=== PATIENT | female | born 1990 | race Caucasian/White ===

== ENCOUNTER 2016-06-22 12:26 | Emergency (ER) | payer SELFPAY ==
[~2016-06-22] VITALS: Ht 170.2 cm; Wt 104.3 kg
[~2016-06-22 12:26] MED LIST: SULF1TAB24 PO; TRAM-29 PO
[2016-06-22] MEDS ORDERED: ONDANSETRON PF 4 MG/2 ML VIAL. IV ONE ×2 (13:30)
[2016-06-22] MEDS ORDERED: LIDO:MAALOX:DONNATAL 1:1:1 15 ML SINGLE DOSE SWSW PRN ×2 (13:30)
[2016-06-22 13:32] LABS: BILIRUBIN,URINE NEGATIVE (NEG); GLUCOSE,URINE NEGATIVE (NEG); NITRITE,URINE NEGATIVE (NEG); PH,URINE 7.5; PROTEIN,URINE NEGATIVE (NEG-TRACE); UROBILINOGEN,URINE 0.2 mg/dL (0.2 mg/dL)
[2016-06-22 13:33] LABS: BASO % 0 % (0-3); EOS % 2 % (0-3); HEMATOCRIT 36.9 % (36.0-47.0); HEMOGLOBIN 12.6 g/dL (12.0-15.5); LYMPH # 1.6 x10^3/uL (1.0-4.8); LYMPH % 14 % (24-48); MEAN CORPUSCULAR HEMOGLOBIN 30 pg (25-35); MEAN CORPUSCULAR HGB CONC 34 g/dL (31-37); MEAN CORPUSCULAR VOLUME 86 fL (79-100); MONO % 7 % (0-9); NEUT % 77 % (31-73); PLATELET COUNT 309 x10^3/uL (140-400); RED BLOOD COUNT 4.28 x10^6/uL (3.50-5.40); RED CELL DISTRIBUTION WIDTH 14.8 % (11.5-14.5); WHITE BLOOD COUNT 11.5 x10^3/uL (4.0-11.0)
[2016-06-22 13:38] LABS: BACTERIA,URINE MODERATE /HPF (0-FEW); RBC,URINE 0 /HPF (0-2); SQUAMOUS EPITHELIAL CELL,UR MOD /LPF
[2016-06-22 13:42] LABS: CALCIUM 8.8 mg/dL (8.5-10.1); CREATININE 0.6 mg/dL (0.6-1.0); GFR 122.8; POTASSIUM 4.3 mmol/L (3.5-5.1)
[2016-06-22 13:47] LABS: ALBUMIN 3.2 g/dL (3.4-5.0); ALBUMIN/GLOBULIN RATIO 0.7 (1.0-1.7); TOTAL BILIRUBIN 0.4 mg/dL (0.2-1.0); TOTAL PROTEIN 7.5 g/dL (6.4-8.2)
--- NOTE | 2016-06-22 14:56 | RAD ---
Indication abdominal and pelvic pain. Early obstetrical ultrasound examination was performed. No prior imaging is available associated with this . The uterus measures approximately 15.4 x 10 x 8 cm. There is a single, viable, IUP. heart rate of 169 was documented. The crown-rump length of 4.8 cm is compatible with a gestational age of approximately 11 weeks 4 days. By sonographic analysis the expected date of confinement is 01/07/2017. The left ovary appeared unremarkable. The right ovary was not seen. Adnexal mass or significant free fluid in the pelvis was not seen. IMPRESSION: Single, viable, IUP of approximately 11 weeks 4 days gestation
--- NOTE | 2016-06-22 14:58 | RAD ---
Indication right upper quadrant abdominal pain. Grayscale imaging was performed. Examination was targeted to the right upper quadrant. No similar imaging is available. A focal mass lesion is not seen in the visualized liver. The gallbladder appeared unremarkable. No cholelithiasis was seen. The visualized pancreas appeared unremarkable. The common bile duct diameter of approximately 2 mm was normal. The right kidney appeared unremarkable. IMPRESSION: No acute or significant finding seen in the right upper quadrant
[2016-06-22 15:00] VITALS: BP 126/58
[2016-06-22] MEDS ORDERED: FENTANYL PF 100 MCG/2 ML VIAL. IV PRN (15:00)
[2016-06-22] MEDS ORDERED: METO10TA81 PO (15:06)
[2016-06-22] MEDS ORDERED: RANI150T6 PO (15:06)
--- NOTE | 2016-06-22 15:06 | PHYS DOC ---
Past Medical History Past Medical History: No Pertinent History Additional Past Medical Histor: HTN w/ Past Surgical History: Alcohol Use: None Drug Use: None Adult General Chief Complaint Chief Complaint: ABDOMINAL PAIN IN HPI HPI Patient is a 26 year old female who presents with abdominal pain and . Patient states this morning she was taking azithromycin pills which were prescribed recently for Chlamydia infection. She states after she took the pills she started having epigastric and right upper quadrant abdominal pain associated with nausea & vomiting x 1. Denies fevers or chills, hematemesis, diarrhea or constipation, dysuria or hematuria, vaginal bleeding or discharge. She has been seen for by Dr. Panchal in the OB clinic, reports she is 11 weeks . History of hypertension complicating her pregnancies in the past , taking unknown blood pressure medication at this time. Review of Systems Review of Systems Constitutional: Denies fever or chills Eyes: Denies change in visual acuity HENT: Denies nasal congestion or sore throat Respiratory: Denies cough or shortness of breath Cardiovascular: Denies chest pain or edema GI: Reports abdominal pain, nausea, vomiting, denies bloody stools or diarrhea : Denies dysuria or hematuria Musculoskeletal: Denies back pain or joint pain Integument: Denies rash or skin lesions Neurologic: Denies headache, focal weakness or sensory changes Current Medications Current Medications Current Medications Medications (Trade) Dose Ordered Sig/Alise Start Time Stop Time Status Last Admin Dose Admin Fentanyl Citrate (Fentanyl 2ml Vial) 50 mcg PRN Q15MIN PRN 06/22/16 15:00 06/22/16 16:06 DC 06/22/16 15:09 50 MCG Multi-Ingredient Mouthwash/Gargle (Gi Cocktail Single Dose) 10 ml PRN 1X PRN 06/22/16 13:30 06/22/16 16:06 DC 06/22/16 13:38 10 ML Ondansetron HCl (Zofran) 4 mg 1X ONCE 06/22/16 13:30 06/22/16 13:31 DC 06/22/16 13:38 4 MG Allergies Allergies Allergies Coded Allergies Type Severity Reaction Last Updated Verified No Known Drug Allergies 06/22/16 No Physical Exam Physical Exam Constitutional: Obese, no acute distress, non-toxic appearance. HENT: Normocephalic, atraumatic, bilateral external ears normal, oropharynx moist, nose normal. Eyes: conjunctiva normal, no discharge. Neck: supple, no stridor. Cardiovascular: RRR, no murmurs, no edema. Lungs & Thorax: LCTAB, no wheezing, no respiratory distress. Abdomen: Normal bowel sounds, soft, right upper quadrant and epigastric tenderness without rebound or guarding, no masses, no lower abdominal tenderness , nondistended. Skin: Warm, dry, no erythema, no rash. Back: No tenderness, no CVA tenderness. Extremities: No tenderness, no edema. Neurologic: Alert and oriented X 3, no focal deficits noted. Psychologic: Affect normal, judgement normal, mood normal. Current Patient Data Vital Signs Vital Signs Date Time Temp Pulse Resp B/P Pulse Ox O2 Delivery O2 Flow Rate FiO2 06/22/16 15:30 Room Air 06/22/16 15:00 82 29 126/58 98 06/22/16 13:28 97.9 97.9 Lab Values Laboratory Tests Test 06/22/16 12:19 06/22/16 13:04 06/22/16 13:30 POC Urine HCG, Qualitative Hcg positive (Negative) Urine Collection Type Unknown Urine Color Yellow Urine Clarity Clear Urine pH 7.5 Urine Specific [place] 1.010 Urine Protein Negativemg/dL (NEG-TRACE) Urine Glucose (UA) Negativemg/dL (NEG) Urine Ketones (Stick) Negativemg/dL (NEG) Urine Blood Negative (NEG) Urine Nitrite Negative (NEG) Urine Bilirubin Negative (NEG) Urine Urobilinogen Dipstick 0.2mg/dL (0.2 mg/dL) Urine Leukocyte Esterase Trace (NEG) Urine RBC 0/HPF (0-2) Urine WBC 1-4/HPF (0-4) Urine Squamous Epithelial Cells Mod/LPF Urine Bacteria Moderate/HPF (0-FEW) White Blood Count 11.5x10^3/uL (4.0-11.0) H Red Blood Count 4.28x10^6/uL (3.50-5.40) Hemoglobin 12.6g/dL (12.0-15.5) Hematocrit 36.9% (36.0-47.0) Mean Corpuscular Volume 86fL (79-100) Mean Corpuscular Hemoglobin 30pg (25-35) Mean Corpuscular Hemoglobin Concent 34g/dL (31-37) Red Cell Distribution Width 14.8% (11.5-14.5) H Platelet Count 309x10^3/uL (140-400) Neutrophils (%) (Auto) 77% (31-73) H Lymphocytes (%) (Auto) 14% (24-48) L Monocytes (%) (Auto) 7% (0-9) Eosinophils (%) (Auto) 2% (0-3) Basophils (%) (Auto) 0% (0-3) Neutrophils # (Auto) 8.9x10^3uL (1.8-7.7) H Lymphocytes # (Auto) 1.6x10^3/uL (1.0-4.8) Monocytes # (Auto) 0.8x10^3/uL (0.0-1.1) Eosinophils # (Auto) 0.2x10^3/uL (0.0-0.7) Basophils # (Auto) 0.0x10^3/uL (0.0-0.2) Sodium Level 137mmol/L (136-145) Potassium Level 4.3mmol/L (3.5-5.1) Chloride Level 101mmol/L (98-107) Carbon Dioxide Level 27mmol/L (21-32) Anion Gap 9 (6-14) Blood Urea Nitrogen 8mg/dL (7-20) Creatinine 0.6mg/dL (0.6-1.0) Estimated GFR (Cockcroft-Gault) 122.8 BUN/Creatinine Ratio 13 (6-20) Glucose Level 96mg/dL (70-99) Calcium Level 8.8mg/dL (8.5-10.1) Total Bilirubin 0.4mg/dL (0.2-1.0) Aspartate Amino Transferase (AST) 14U/L (15-37) L Alanine Aminotransferase (ALT) 19U/L (14-59) Alkaline Phosphatase 65U/L (46-116) Total Protein 7.5g/dL (6.4-8.2) Albumin 3.2g/dL (3.4-5.0) L Albumin/Globulin Ratio 0.7 (1.0-1.7) L Lipase 150U/L (73-393) Laboratory Tests 06/22/16 13:30 Laboratory Tests 06/22/16 13:30 EKG EKG [] Radiology/Procedures Radiology/Procedures PROCEDURE: OB < 14 WKS Indication abdominal and pelvic pain. Early obstetrical ultrasound examination was performed. No prior imaging is available associated with this . The uterus measures approximately 15.4 x 10 x 8 cm. There is a single, viable, IUP. heart rate of 169 was documented. The crown-rump length of 4.8 cm is compatible with a gestational age of approximately 11 weeks 4 days. By sonographic analysis the expected date of confinement is 01/07/2017. The left ovary appeared unremarkable. The right ovary was not seen. Adnexal mass or significant free fluid in the pelvis was not seen. IMPRESSION: Single, viable, IUP of approximately 11 weeks 4 days gestation DICTATED and SIGNED BY: SHANNON MILLER MD DATE: 06/22/16 1450 PROCEDURE: ABDOMEN LTD Indication right upper quadrant abdominal pain. Grayscale imaging was performed. Examination was targeted to the right upper quadrant. No similar imaging is available. A focal mass lesion is not seen in the visualized liver. The gallbladder appeared unremarkable. No cholelithiasis was seen. The visualized pancreas appeared unremarkable. The common bile duct diameter of approximately 2 mm was normal. The right kidney appeared unremarkable. IMPRESSION: No acute or significant finding seen in the right upper quadrant DICTATED and SIGNED BY: SHANNON MILLER MD DATE: 06/22/16 4542[] Course & Med Decision Making Course & Med Decision Making Pertinent Labs and Imaging studies reviewed. (See chart for details) Patient presents with abdominal pain in . No lower abdominal pain, discharge, bleeding. Gave GI cocktail, pain medication, antiemetics, IV fluids. She felt better after treatment here. Labs unremarkable for acute process. Ultrasound of right upper quadrant unremarkable as is obstetric ultrasound which shows live IUP. Suspect symptoms related to gastritis or GERD, complicated by pill ingestion. Recommend eating with antibiotics, gave perceptions for Reglan and Zantac. Try to avoid eating fatty foods and be diligent with hydration. Follow up with Dr. Panchal in the OB clinic in 2-3 days. Return to the emergency department for high fever, severe pain, uncontrolled vomiting, heavy vaginal bleeding requiring use of greater than 1 pad per hour, any otherwise worsening condition. Discharged home in stable and improved condition. [] Dragon Disclaimer Dragon Disclaimer This electronic medical record was generated, in whole or in part, using a voice recognition dictation system. Departure Departure Impression: Primary Impression: Abdominal pain affecting Additional Impression: Nausea & vomiting Disposition: 01 HOME, SELF-CARE Condition: STABLE Referrals: ANDREWS PANCHAL MD (PCP) Patient Instructions: Abdominal Pain During , [id number] Additional Instructions: You worsen in the emergency department today for abdominal pain during . Tests here did not show a serious cause of symptoms. This may be heartburn or stomach irritation from taking pills. Please rest, drink fluids, take Reglan for nausea, use Zantac as needed for burning stomach pain. Try to avoid spicy foods, coffee. Follow-up with Dr. Panchal on Saturday if symptoms continue. Return to the emergency department for high fever, severe pain, uncontrolled vomiting, vaginal bleeding requiring use of more than 1 pad per hour, any otherwise worsening condition. Scripts Ranitidine Hcl (Zantac)150 Mg [id number] Mg PO DAILY #20 TAB Prov:MINNIE VIDAL MD 06/22/16 Metoclopramide Hcl (Reglan)10 Mg Tablet1 Tab PO TID PRN NAUSEA #20 TAB Prov:MINNIE VIDAL MD 06/22/16 Problem Qualifiers MINNIE VIDAL MD Jun 22, 2016 15:06
== END 2016-06-22 15:30 | disposition home or self-care (01) ==
LOC: ER 12:26
DX: O26.891 Other specified pregnancy related conditions, first trimester (principal); R10.13 Epigastric pain; R10.11 Right upper quadrant pain; O21.0 Mild hyperemesis gravidarum; O16.1 Unspecified maternal hypertension, first trimester; Z3A.11 11 weeks gestation of pregnancy
CPT/HCPCS: 36415; 76705; 76801; 80053; 81001; 81025; 83690; 85027; 87086; 96374; 96375; 99285; J2405; J3010

== ENCOUNTER 2016-09-06 18:15 | Observation (INO) | payer SELFPAY ==
[~2016-09-06 18:15] MED LIST changes: +METO10TA81 PO; +RANI150T6 PO; -TRAM-29 PO; +TRAM-48 PO
[2016-09-06] MEDS ORDERED: hydrOXYzine PAMOATE 25 MG CAPSULE PO PRN (19:50)
[2016-09-06 20:28] LABS: BASO # 0.1 x10^3/uL (0.0-0.2); BASO % 0 % (0-3); EOS % 1 % (0-3); LYMPH # 2.3 x10^3/uL (1.0-4.8); LYMPH % 17 % (24-48); MEAN CORPUSCULAR HEMOGLOBIN 31 pg (25-35); MEAN CORPUSCULAR HGB CONC 34 g/dL (31-37); MEAN CORPUSCULAR VOLUME 90 fL (79-100); MONO % 7 % (0-9); NEUT % 75 % (31-73); PLATELET COUNT 276 x10^3/uL (140-400); RED BLOOD COUNT 3.54 x10^6/uL (3.50-5.40); RED CELL DISTRIBUTION WIDTH 14.1 % (11.5-14.5); WHITE BLOOD COUNT 13.8 x10^3/uL (4.0-11.0)
[2016-09-06] MEDS: IV DEXTROSE 5%-LACT RINGERS 1,000 ML IV SCH ×2 (20:32→21:15)
[2016-09-06 20:43] LABS: ALBUMIN 2.9 g/dL (3.4-5.0); ALBUMIN/GLOBULIN RATIO 0.8 (1.0-1.7); CALCIUM 8.6 mg/dL (8.5-10.1); CREATININE 0.6 mg/dL (0.6-1.0); GFR 122.8; TOTAL BILIRUBIN 0.2 mg/dL (0.2-1.0); TOTAL PROTEIN 6.7 g/dL (6.4-8.2)
== END 2016-09-06 22:26 | disposition home or self-care (01) ==
LOC: 3 SO LND 18:15
PROVIDERS: ADMIT Specialist; ATTEND Specialist
DX: O26.892 Other specified pregnancy related conditions, second trimester (principal); R10.9 Unspecified abdominal pain; R42 Dizziness and giddiness; R21 Rash and other nonspecific skin eruption; Z3A.22 22 weeks gestation of pregnancy
CPT/HCPCS: 36415; 80053; 85027; 96360; 96361; G0378; G0379; Q0177

== ENCOUNTER 2016-10-28 15:49 | Observation (INO) | payer OTHER ==
[~2016-10-28] VITALS: Ht 170.2 cm; Wt 113.4 kg
[2016-10-28] MEDS ORDERED: CYCLOBENZAPRINE 10 MG TABLET. PO ONE (17:30)
== END 2016-10-28 18:45 | disposition home or self-care (01) ==
LOC: 3 SO LND 15:49
PROVIDERS: ADMIT Specialist; ATTEND Specialist
DX: O26.893 Other specified pregnancy related conditions, third trimester (principal); M54.9 Dorsalgia, unspecified; M25.552 Pain in left hip; Z3A.29 29 weeks gestation of pregnancy
CPT/HCPCS: 82962; G0378; G0379

== ENCOUNTER 2021-04-25 17:24 | Emergency (ER) | payer OTHER ==
[~2021-04-25] VITALS: Ht 167.6 cm; Wt 118.2 kg
[~2021-04-25 17:24] MED LIST changes: +RANI-376 PO; -RANI150T6 PO
[2021-04-25 18:18] LABS: BILIRUBIN,URINE NEGATIVE (NEG); CLARITY,URINE CLEAR; COLOR,URINE YELLOW; NITRITE,URINE NEGATIVE (NEG); PROTEIN,URINE NEGATIVE (NEG-TRACE)
[2021-04-25 18:26] LABS: BACTERIA,URINE 0 /HPF (0-FEW); RBC,URINE 0 /HPF (0-2); WBC,URINE OCC /HPF (0-4)
[2021-04-25 18:42] LABS: INFLUENZA A PATIENT NEGATIVE (NEGATIVE); INFLUENZA B PATIENT NEGATIVE (NEGATIVE)
[2021-04-25] MEDS ORDERED: DEXAMETHASONE SOD PHOS 20 MG/5 ML VIAL. IV ONE (18:45)
[2021-04-25] MEDS ORDERED: cefTRIAXone IV Push 1 GM VIAL. IVP ONE (18:45)
[2021-04-25] MEDS ORDERED: ACETAMINOPHEN 500 MG TABLET PO ONE (18:45)
--- NOTE | 2021-04-25 18:49 | PHYS DOC ---
Past Medical History Past Medical History: No Pertinent History Additional Past Medical Histor: HTN w/ Past Surgical History: Smoking Status: Current Every Day Smoker Alcohol Use: Occasionally Drug Use: None Social History Narrative: "I DON'T DO METH. BUT I'VE BEEN AROUND IT A LOT, I COULD TEST + General Adult EDM: Chief Complaint: HEADACHE HPI: HPI: Patient is a 31 year old female who presents the ED today complaining of a sore throat, headache, fever, symptoms began yesterday. Patient denies any chest pain or shortness of breath. She states she is not vaccinated tetanus COVID19. Review of Systems: Review of Systems: Constitutional: Reports fever Eyes: Denies change in visual acuity. [] HENT: Reports sore throat. Denies nasal congestion Respiratory: Denies cough or shortness of breath. [] Cardiovascular: Denies chest pain or edema. [] GI: Denies abdominal pain, nausea, vomiting, bloody stools or diarrhea. [] : Denies dysuria. [] Musculoskeletal: Denies back pain or joint pain. [] Integument: Denies rash. [] Neurologic: Reports headache, denies focal weakness or sensory changes. [] Psychiatric: Denies depression or anxiety. [] Heart Score: C/O Chest Pain: N/A Risk Factors: Risk Factors: DM, Current or recent (<one month) smoker, HTN, HLP, family history of CAD, obesity. Risk Scores: Score 0 - 3: 2.5% MACE over next 6 weeks - Discharge Home Score 4 - 6: 20.3% MACE over next 6 weeks - Admit for Clinical Observation Score 7 - 10: 72.7% MACE over next 6 weeks - Early Invasive Strategies Current Medications: Current Medications Medications (Trade) Dose Ordered Sig/Alise Start Time Stop Time Status Last Admin Dose Admin Acetaminophen (Tylenol) 1,000 mg 1X ONCE 04/25/21 18:45 04/25/21 18:46 DC Ceftriaxone Sodium (Rocephin) 1 gm 1X ONCE 04/25/21 18:45 04/25/21 18:46 DC Dexamethasone Sodium Phosphate (Decadron) 10 mg 1X ONCE 04/25/21 18:45 04/25/21 18:46 DC Sodium Chloride 1,000 ml @ 1,770 mls/hr Q34M 04/25/21 18:45 04/25/21 19:45 Allergies: Allergies: Allergies Coded Allergies Type Severity Reaction Last Updated Verified No Known Drug Allergies 06/22/16 No Physical Exam: PE: Constitutional: Well developed, well nourished, no acute distress, non-toxic appearance. [] HENT: Normocephalic, atraumatic, bilateral external ears normal, oropharynx moist, no oral exudates, nose normal. [] Midline uvula, +3 tonsils with mild erythema and trace exudate +2 anterior cervical adenopathy Eyes: PERRLA, EOMI, conjunctiva normal, no discharge. [] Neck: Normal range of motion, no tenderness, supple, no stridor. [] Cardiovascular:Heart rate regular rhythm, no murmur [] Lungs & Thorax: Bilateral breath sounds clear to auscultation [] Abdomen: Bowel sounds normal, soft, no tenderness, no masses, no pulsatile mass es. [] Skin: Warm, dry, no erythema, no rash. [] Back: No tenderness, no CVA tenderness. [] Extremities: No tenderness, no cyanosis, no clubbing, ROM intact, no edema. [] Neurologic: Alert and oriented X 3, normal motor function, normal sensory function, no focal deficits noted. [] Psychologic: Affect normal, judgement normal, mood normal. [] Current Patient Data: Labs: Laboratory Tests Test 04/25/21 17:52 04/25/21 17:53 04/25/21 18:05 Urine Collection Type Unknown Urine Color Yellow Urine Clarity Clear Urine pH 7.0 (<5.0-8.0) Urine Specific [place] 1.015 (1.000-1.030) Urine Protein Negative mg/dL (NEG-TRACE) Urine Glucose (UA) Negative mg/dL (NEG) Urine Ketones (Stick) Negative mg/dL (NEG) Urine Blood Negative (NEG) Urine Nitrite Negative (NEG) Urine Bilirubin Negative (NEG) Urine Urobilinogen Dipstick 1.0 mg/dL (0.2 mg/dL) Urine Leukocyte Esterase Negative (NEG) Urine RBC 0 /HPF (0-2) Urine WBC Occ /HPF (0-4) Urine Squamous Epithelial Cells Few /LPF Urine Bacteria 0 /HPF (0-FEW) Influenza Type A Antigen Negative (NEGATIVE) Influenza Type B Antigen Negative (NEGATIVE) SARS-CoV-2 Antigen (Rapid) Negative (NEGATIVE) POC Urine HCG, Qualitative Hcg negative (Negative) Vital Signs: Vital Signs Date Time Temp Pulse Resp B/P (MAP) Pulse Ox O2 Delivery O2 Flow Rate FiO2 04/25/21 17:48 101.1 127 28 126/58 (80) 98 Room Air 101.1 EKG: EKG: [] Radiology/Procedures: Radiology/Procedures: []PROCEDURE: CT SOFT TISSUE NECK W/CONTRAST Exam: CT Neck with contrast INDICATION: Sore throat TECHNIQUE: Sequential axial images through the neck obtained following the administration of 70 mL of Omni 300 IV contrast. Sagittal and coronal reformatted images were reconstructed from the axial data and reviewed. Exposure: One or more of the following in the visualized dose reduction techniques were utilized for this examination: 1. Automated exposure control 2. Adjustment of the MA and/or KV according to patient size 3. Use of iterative of reconstructive technique Comparisons: None FINDINGS: Visualized intracranial structures are unremarkable. Globes intradural contents are normal. Mucosal retention cyst noted within the right maxillary sinus. There is near complete opacification of the right frontal sinus. There is circumferential parapharyngeal edema and mucosal thickening at the level of the nasopharynx and oropharynx. There is enlargement of the palatine tonsils and adenoids bilaterally. Thyroid and salivary glands are within normal limits. There are numerous prominent and mildly enlarged bilateral cervical lymph nodes. Visualized lung apices are clear. No suspicious osseous lesions or acute fractures. IMPRESSION: 1. Enlargement of the palatine and adenoid tonsils with mild parapharyngeal edema. Findings likely related to pharyngitis. No focal fluid collection to suggest abscess. 2. Extensive enlarged upper cervical lymphadenopathy bilaterally. This is likely reactive to the above process. Electronically signed by: Camilo Yang MD (04/25/2021 8:14 PM) [facility] DICTATED and SIGNED BY: CAMILO YANG MD DATE: 04/25/[id number] 0 Course & Med Decision Making: Course & Med Decision Making Pertinent Labs and Imaging studies reviewed. (See chart for details) This is a 31-year-old female patient presented to the ED today with headache sore throat and a fever that began yesterday. Vitals on arrival to the ED temperature 1-0.1, heart rate 127 UDS positive for methamphetamine, respiration 28, blood pressure 126/58, O2 sats 98% on room air. Positive rapid strep, CBC with a WBC of 17.9 and a left shift, CMP with no acute findings. Lactic is normal, negative rapid Covid test, negative influenza a and B CT of neck soft tissues noted for acute pharyngitis with no abscess Patient was given Rocephin, Decadron, 2 L of IV fluids, Tylenol, Toradol, feeling better. Patient and mother are requesting she gets discharged to home before the weather gets bad. Patient's mother also requested patient to be discharged before the weather gets bad. Patient willing to follow up with ENT as outpatient. Contact provided. Given prescription for amoxicillin and prednisone. Discussed fever management. Discharge to home. ticketstreet Disclaimer: ticketstreet Disclaimer: This electronic medical record was generated, in whole or in part, using a voice recognition dictation system. Departure Departure Impression: Primary Impression: Acute pharyngitis Qualified Codes: J02.9 - Acute pharyngitis, unspecified Additional Impressions: Fever Qualified Codes: R50.9 - Fever, unspecified Tachycardia Disposition: 01 HOME / SELF CARE / HOMELESS Condition: STABLE Referrals: NO PCP (PCP) QUINTON BURGOS MD follow up in the next seven days Patient Instructions: Fever, Viral and Bacterial Pharyngitis Additional Instructions: You have acute pharyngitis, take the prescribed antibiotics and prednisone as ordered. Take the pain medicine as needed for pain. Please follow-up with the provided ENT and the primary care doctor in the next 7 days, come back to the ED at any point symptoms worsen Scripts Hydrocodone Bit/Acetaminophen (HYDROCODONE-APAP 5-325 ) 1 Tab Tablet 1 TAB PO PRN Q6HRS PRN for PAIN, #[address] Zuñiga Prov: NEYMAR GUAMAN WET WHEELER 04/25/21 Prednisone (PREDNISONE) 50 Mg Tablet 1 TAB PO DAILY, #5 TAB Prov: NEYMAR GUAMAN WET WHEELER 04/25/21 Amoxicillin (AMOXICILLIN) 875 Mg Tablet 1 TAB PO BID, #20 TAB Prov: NEYMAR GUAMAN WET WHEELER 04/25/21 NEYMAR GUAMAN APRN Apr 25, 2021 18:49
[2021-04-25 19:00] VITALS: BP 147/91
[2021-04-25] MEDS: IV NORMAL SALINE 1000ML BAG 1,000 ML IV SCH ×2 (19:06→19:32)
[2021-04-25 19:08] LABS: BASO # 0.1 x10^3/uL (0.0-0.2); BASO % 0 % (0-3); EOS % 0 % (0-3); HEMATOCRIT 34.5 % (36.0-47.0); HEMOGLOBIN 11.6 g/dL (12.0-15.5); LYMPH # 1.7 x10^3/uL (1.0-4.8); LYMPH % 10 % (24-48); MEAN CORPUSCULAR HEMOGLOBIN 28 pg (25-35); MEAN CORPUSCULAR HGB CONC 34 g/dL (31-37); MEAN CORPUSCULAR VOLUME 83 fL (79-100); MONO # 1.2 x10^3/uL (0.0-1.1); MONO % 7 % (0-9); NEUT # 14.8 x10^3/uL (1.8-7.7); NEUT % 83 % (31-73); PLATELET COUNT 312 x10^3/uL (140-400); RED BLOOD COUNT 4.15 x10^6/uL (3.50-5.40); RED CELL DISTRIBUTION WIDTH 13.8 % (11.5-14.5); WHITE BLOOD COUNT 17.9 x10^3/uL (4.0-11.0)
[2021-04-25 19:24] LABS: CALCIUM 8.2 mg/dL (8.5-10.1); CREATININE 0.7 mg/dL (0.6-1.0); GFR 98.9; POTASSIUM 3.9 mmol/L (3.5-5.1)
[2021-04-25 19:30] LABS: ALBUMIN 3.2 g/dL (3.4-5.0); ALBUMIN/GLOBULIN RATIO 0.7 (1.0-1.7); TOTAL BILIRUBIN 0.4 mg/dL (0.2-1.0); TOTAL PROTEIN 7.5 g/dL (6.4-8.2)
[2021-04-25 19:31] LABS: % ATYL 1 % (0-0); % BANDS 11 % (0-9); % LYMPHS 6 % (24-48); % MONOS 5 % (0-10); % SEGS 77 % (35-66); PLT ESTIMATE ADEQUATE (ADEQUATE); TOXIC GRANULATION SLIGHT
[2021-04-25] MEDS ORDERED: IOHEXOL 300 MG/ML 100ML VIAL. IV ONE (19:45)
[2021-04-25] MEDS ORDERED: CONTRAST GIVEN. MC PRN (19:45)
[2021-04-25 20:12] LABS: BARBITURATES NEG (NEG); BENZODIAZEPINES NEG (NEG); CANNABINOIDS NEG (NEG); COCAINE NEG (NEG); METHADONE NEG (NEG); OPIATES NEG (NEG); PHENCYCLIDINE NEG (NEG)
[2021-04-25 20:13] LABS: AMPHETAMINE/METHAMPHETAMINE POS (NEG)
--- NOTE | 2021-04-25 20:16 | RAD ---
Exam: CT Neck with contrast INDICATION: Sore throat TECHNIQUE: Sequential axial images through the neck obtained following the administration of 70 mL of Omni 300 IV contrast. Sagittal and coronal reformatted images were reconstructed from the axial data and reviewed. Exposure: One or more of the following in the visualized dose reduction techniques were utilized for this examination: 1. Automated exposure control 2. Adjustment of the MA and/or KV according to patient size 3. Use of iterative of reconstructive technique Comparisons: None FINDINGS: Visualized intracranial structures are unremarkable. Globes intradural contents are normal. Mucosal retention cyst noted within the right maxillary sinus. There is near complete opacification o f the right frontal sinus. There is circumferential parapharyngeal edema and mucosal thickening at the level of the nasopharynx and oropharynx. There is enlargement of the palatine tonsils and adenoids bilaterally. Thyroid and salivary glands are within normal limits. There are numerous prominent and mildly enlarged bilateral cervical lymph nodes. Visualized lung apices are clear. No suspicious osseous lesions or acute fractures. IMPRESSION: 1. Enlargement of the palatine and adenoid tonsils with mild parapharyngeal edema. Findings likely r elated to pharyngitis. No focal fluid collection to suggest abscess. 2. Extensive enlarged upper cervical lymphadenopathy bilaterally. This is likely reactive to the abo ve process. Electronically signed by: Camilo Condon MD (04/25/2021 8:14 PM) [facility]
[2021-04-25] MEDS ORDERED: KETOROLAC 30 MG/ML VIAL. IVP ONE (20:30)
[2021-04-25] MEDS ORDERED: PRED50TA PO (20:57)
[2021-04-25] MEDS ORDERED: HYDR-2761 PO (20:57)
[2021-04-25] MEDS ORDERED: AMOX875T PO (20:57)
--- NOTE | 2021-04-26 16:03 | NUR ---
IP: Attempted to contact pt concerning covid results. No answer, left a voicemail to return the call. Addendum: 04/26/21 at 1740 by ESTEFANIA BURGESS RN Pt returned my call. Informed her of negative covid test. Pt verbalized understanding.
== END 2021-04-25 21:41 | disposition home or self-care (01) ==
LOC: ER 17:24
DX: J02.9 Acute pharyngitis, unspecified (principal); Z20.822 Contact with and (suspected) exposure to COVID-19; R50.9 Fever, unspecified; R00.0 Tachycardia, unspecified; R51.9 Headache, unspecified
CPT/HCPCS: 36415; 70491; 80053; 80307; 81001; 81025; 83605; 85007; 85025; 87040; 87428; 87880; 96361; 96374; 96375; 99285; J0696; J1100; J1885; J7030; Q9967; U0003; U0005